=== PATIENT | female | born 1960 | race African-American/Black ===

== ENCOUNTER 2020-05-29 14:32 | Inpatient (IN) | payer OTHER ==
[2020-05-29 17:08] VITALS: BMI 21.9
[2020-05-29] MEDS ORDERED: NICOTINE POLACRILEX 2 MG GUM BUC PRN (19:45)
[2020-05-29] MEDS ORDERED: MAGNESIUM HYDROX 2400MG/30ML ORAL SUSPENSION 30 ML CUP PO PRN (19:45)
[2020-05-29] MEDS ORDERED: LORazepam 2 MG TABLET PO ONE (19:45)
[2020-05-29] MEDS ORDERED: LORazepam 1 MG TABLET PO PRN (19:45)
[2020-05-29] MEDS ORDERED: METHOCARBAMOL 500 MG TABLET PO PRN (19:45)
[2020-05-29] MEDS ORDERED: MENTHOL/PHENOL 1 EACH UD MM PRN (19:45)
[2020-05-29] MEDS ORDERED: ONDANSETRON *ODT* 4 MG TABLET SL PRN (19:45)
[2020-05-29] MEDS ORDERED: MAGNESIUM CITRATE 300 ML BOTTLE PO PRN (19:45)
[2020-05-29] MEDS ORDERED: IBUPROFEN 400 MG TABLET (FP) PO PRN (19:45)
[2020-05-29] MEDS ORDERED: BISMUTH SUBSALICYLATE 524 MG/30 ML UD PO PRN (19:45)
[2020-05-29] MEDS ORDERED: MAG HYDROX/AL HYDROX/SIMETH 30 ML UNIT-DOSE CUP PO PRN (19:45)
[2020-05-29] MEDS ORDERED: ACETAMINOPHEN 325 MG TABLET (FP) PO PRN ×2 (19:45)
[2020-05-29] MEDS: THIAMINE HCL 100 MG TABLET (FP) PO SCH (21:49)
[2020-05-29] MEDS: guaiFENesin 200 MG/10 ML 10 ML UNIT-DOSE CUPS PO SCH (21:50)
[2020-05-29] MEDS: LORazepam 2 MG TABLET PO SCH (23:53)
[2020-05-30] MEDS: guaiFENesin 200 MG/10 ML 10 ML UNIT-DOSE CUPS PO SCH ×4 (01:39→22:28)
[2020-05-30] MEDS: LORazepam 2 MG TABLET PO SCH ×4 (06:28→22:28)
[2020-05-30] MEDS: PRENATAL VITAMINS W/ FOLIC ACID TABLET (FP) PO SCH (10:41)
[2020-05-30] MEDS: NICOTINE 14 MG/24 HOURS TOPICAL PATCH TD SCH (10:42)
[2020-05-30] MEDS: PANTOPRAZOLE 40 MG TABLET PO SCH (10:42)
[2020-05-30 10:49] LABS: HEMATOCRIT 29.7 % (32.4-45.2); HEMOGLOBIN 9.8 GM/dL (10.7-15.3); MCH 27.9 pg (25.7-33.7); MEAN CELL VOLUME 84.4 fl (80-96); MEAN PLT VOLUME 10.3 fl (7.5-11.1); PLATELET COUNT 175 K/MM3 (134-434); RBC 3.51 M/mm3 (3.60-5.2); RDW 20.1 % (11.6-15.6)
[2020-05-30 11:25] LABS: POTASSIUM 3.9 mmol/L (3.5-5.1)
[2020-05-30 11:34] LABS: ALBUMIN 3.3 g/dl (3.4-5.0); BLOOD UREA NITROGEN 13.2 mg/dL (7-18); CALCIUM 8.9 mg/dL (8.5-10.1)
[2020-05-30 11:38] LABS: CREATININE 0.9 mg/dL (0.55-1.3)
[2020-05-30 11:39] LABS: BILIRUBIN,TOTAL 1.2 mg/dL (0.2-1); TOT PROT 7.7 g/dl (6.4-8.2)
[2020-05-30] MEDS: LACTULOSE 20 GM/30 ML UDC (FOR ORAL USE ONLY) PO SCH ×3 (12:55→22:28)
[2020-05-30] MEDS: THIAMINE HCL 100 MG TABLET (FP) PO SCH (22:29)
[2020-05-31] MEDS: guaiFENesin 200 MG/10 ML 10 ML UNIT-DOSE CUPS PO SCH ×4 (03:11→20:26)
[2020-05-31] MEDS: LORazepam 1 MG TABLET PO SCH ×4 (07:42→22:24)
[2020-05-31] MEDS: LACTULOSE 20 GM/30 ML UDC (FOR ORAL USE ONLY) PO SCH ×3 (07:43→22:24)
[2020-05-31 10:19] LABS: BASO % 0.7 % (0-2.0); EOS % 1.8 % (0-4.5); HEMATOCRIT 29.1 % (32.4-45.2); HEMOGLOBIN 9.6 GM/dL (10.7-15.3); MCH 27.9 pg (25.7-33.7); MEAN CELL VOLUME 84.7 fl (80-96); MEAN PLT VOLUME 9.8 fl (7.5-11.1); NEUT % 50.5 % (42.8-82.8); PLATELET COUNT 161 K/MM3 (134-434); RBC 3.44 M/mm3 (3.60-5.2); RDW 20.3 % (11.6-15.6); WHITE BLOOD COUNT 4.2 K/mm3 (4.0-10.0)
[2020-05-31] MEDS: NICOTINE 14 MG/24 HOURS TOPICAL PATCH TD SCH (10:58)
[2020-05-31] MEDS: PANTOPRAZOLE 40 MG TABLET PO SCH (10:58)
[2020-05-31] MEDS: PRENATAL VITAMINS W/ FOLIC ACID TABLET (FP) PO SCH (10:58)
[2020-05-31] MEDS: MELATONIN 5 MG TABLETS PO PRN (22:24)
[2020-05-31] MEDS: THIAMINE HCL 100 MG TABLET (FP) PO SCH (22:25)
[2020-06-01] MEDS ORDERED: LORazepam 0.5 MG TABLET PO PRN
[2020-06-01] MEDS: guaiFENesin 200 MG/10 ML 10 ML UNIT-DOSE CUPS PO SCH ×3 (02:29→14:13)
[2020-06-01] MEDS: LACTULOSE 20 GM/30 ML UDC (FOR ORAL USE ONLY) PO SCH ×3 (06:22→22:19)
[2020-06-01] MEDS: LORazepam 0.5 MG TABLET PO SCH ×4 (06:23→22:19)
[2020-06-01] MEDS: NICOTINE 14 MG/24 HOURS TOPICAL PATCH TD SCH (10:25)
[2020-06-01] MEDS: PANTOPRAZOLE 40 MG TABLET PO SCH (10:26)
[2020-06-01] MEDS: PRENATAL VITAMINS W/ FOLIC ACID TABLET (FP) PO SCH (10:26)
[2020-06-01] MEDS: THIAMINE HCL 100 MG TABLET (FP) PO SCH (22:18)
[2020-06-01] MEDS: MELATONIN 5 MG TABLETS PO PRN (22:19)
[2020-06-02] MEDS ORDERED: LORazepam 0.5 MG TABLET PO ONE (05:00)
[2020-06-02] MEDS: LACTULOSE 20 GM/30 ML UDC (FOR ORAL USE ONLY) PO SCH (08:00)
[2020-06-02 09:15] VITALS: BP 138/86; PULSE 73; TEMP 96.7
== END 2020-06-02 09:42 | disposition other institution (70) | DRG 775 ==
LOC: YASAS 14:32 → Y3N 20:51
PROVIDERS: ADMIT Allergy & Immunology; ATTEND Allergy & Immunology
PROC: HZ2ZZZZ Detoxification Services for Substance Abuse Treatment (ICD-10-PCS; principal; 2020-05-29)
DX: F10.230 Alcohol dependence with withdrawal, uncomplicated (principal); F12.20 Cannabis dependence, uncomplicated; F17.210 Nicotine dependence, cigarettes, uncomplicated; F41.9 Anxiety disorder, unspecified; F32.9 Major depressive disorder, single episode, unspecified; D64.9 Anemia, unspecified; G40.909 Epilepsy, unspecified, not intractable, without status epilepticus; K21.9 Gastro-esophageal reflux disease without esophagitis; B18.2 Chronic viral hepatitis C; R05 Cough; R63.4 Abnormal weight loss; Z68.21 Body mass index [BMI] 21.0-21.9, adult; Z86.19 Personal history of other infectious and parasitic diseases
CPT/HCPCS: 36415; 80053; 82140; 85025; 85027; 86780; 93005; 93010; C9803; U0003